=== PATIENT | male | born 1995 | race Caucasian/White ===

== ENCOUNTER 2018-08-01 14:20 | Emergency (ER) | payer OTHER ==
[~2018-08-01] VITALS: Ht 180.3 cm; Wt 90.7 kg
[~2018-08-01 14:20] MED LIST: ACETAMINOPHEN-1 EAC1 PO; AMLODIPINE BESY10 MG PO; ANTACID650 MG PO; ATIVAN1 MG PO; BACTRIM DS TAB1 EACH PO; BUSPAR30 MG PO; CELLCEPT500 MG PO; CIPRO500 MG PO; EPOGEN; IRON; MELATONIN3 MG PO; NORCO 5-325 TA1 EAC1 PO; NORCO 5-325 TA1 EACH PO; OMEPRAZOLE; ONDANSETRON HCL4 M2 PO; PREDNISOLONE 5 M5 M1 PO; PRILOSEC2.5 MG PO; ROBAXIN 750 MG750 M1 PO; TACROLIMUS0.5 MG PO; VALCYTE450 MG PO; VITAMIN D; VITAMIN D1000 UNI1 PO; ZYPREXA5 MG PO; [UNRECOGNIZED DRUG - OTHER]; [UNRECOGNIZED DRUG - OTHER]
[2018-08-01 15:06] VITALS: BP 144/84
== END 2018-08-01 15:07 | disposition home or self-care (01) ==
LOC: M.ERS 14:20
DX: S51.812A Laceration without foreign body of left forearm, initial encounter (principal); F17.210 Nicotine dependence, cigarettes, uncomplicated; Z91.041 Radiographic dye allergy status; Z88.8 Allergy status to other drugs, medicaments and biological substances; W26.8XXA Contact with other sharp object(s), not elsewhere classified, initial encounter; Y93.89 Activity, other specified; Y92.89 Other specified places as the place of occurrence of the external cause; Y99.8 Other external cause status

== ENCOUNTER 2020-07-05 09:10 | Emergency (ER) | payer MEDICAID ==
[~2020-07-05] VITALS: Ht 182.9 cm; Wt 79.4 kg
[2020-07-05] MEDS ORDERED: HYDROCODON-ACE1 EAC7 PO (10:31)
[2020-07-05 11:05] VITALS: BP 120/80
== END 2020-07-05 11:05 | disposition home or self-care (01) ==
LOC: M.ERS 09:10
DX: S63.502A Unspecified sprain of left wrist, initial encounter (principal); M79.645 Pain in left finger(s); Z94.0 Kidney transplant status; Z79.899 Other long term (current) drug therapy; Z79.2 Long term (current) use of antibiotics; Z91.041 Radiographic dye allergy status; Z88.8 Allergy status to other drugs, medicaments and biological substances; W23.0XXA Caught, crushed, jammed, or pinched between moving objects, initial encounter; Y93.89 Activity, other specified; Y92.89 Other specified places as the place of occurrence of the external cause; Y99.8 Other external cause status

== ENCOUNTER 2021-02-17 18:04 | Emergency (ER) | payer MEDICAID ==
[~2021-02-17] VITALS: Ht 182.9 cm; Wt 77.1 kg
[~2021-02-17 18:04] MED LIST changes: +HYDROCODON-ACE1 EAC7 PO
[2021-02-17] MEDS ORDERED: RAYOS5 MG PO (18:16)
[2021-02-17] MEDS ORDERED: PROGRAF0.2 MG PO (18:16)
[2021-02-17] MEDS ORDERED: NORVASC 2.5 MG2.5 M1 PO (18:16)
[2021-02-17] MEDS ORDERED: CELLCEPT250 MG PO (18:18)
[2021-02-17] MEDS ORDERED: POLYMYXIN B/TMP10 ML INTRAOCULR (19:28)
[2021-02-17 19:46] VITALS: BP 144/78
== END 2021-02-17 19:46 | disposition home or self-care (01) ==
LOC: M.ERS 18:04
DX: H53.8 Other visual disturbances (principal); Z79.899 Other long term (current) drug therapy; Z88.6 Allergy status to analgesic agent; Z91.041 Radiographic dye allergy status

== ENCOUNTER 2021-03-26 06:59 | Emergency (ER) | payer MEDICAID ==
[~2021-03-26] VITALS: Ht 182.9 cm; Wt 79.4 kg
[~2021-03-26 06:59] MED LIST changes: +CELLCEPT250 MG PO; +NORVASC 2.5 MG2.5 M1 PO; +POLYMYXIN B/TMP10 ML INTRAOCULR; +PROGRAF0.2 MG PO; +RAYOS5 MG PO
[2021-03-26] MEDS ORDERED: AMOXICILLIN 50500 MG PO (07:51)
[2021-03-26 07:56] LABS: INFLUENZA A ANTIGEN Negative (Negative); INFLUENZA B ANTIGEN Negative (Negative)
[2021-03-26 08:05] VITALS: BP 137/84
== END 2021-03-26 08:10 | disposition home or self-care (01) ==
LOC: M.ERS 06:59
PROVIDERS: Family Medicine
DX: J01.10 Acute frontal sinusitis, unspecified (principal); Z20.822 Contact with and (suspected) exposure to COVID-19; J01.00 Acute maxillary sinusitis, unspecified; Z94.0 Kidney transplant status; Z90.89 Acquired absence of other organs; Z79.899 Other long term (current) drug therapy; Z91.041 Radiographic dye allergy status; Z88.8 Allergy status to other drugs, medicaments and biological substances

== ENCOUNTER 2021-04-08 17:19 | Emergency (ER) | payer MEDICAID ==
[~2021-04-08] VITALS: Ht 182.9 cm; Wt 79.4 kg
[~2021-04-08 17:19] MED LIST changes: +AMOXICILLIN 50500 MG PO
[2021-04-08] MEDS ORDERED: PRILOSEC10 MG PO (17:32)
[2021-04-08 19:53] VITALS: BP 125/78
== END 2021-04-08 19:53 | disposition home or self-care (01) ==
LOC: M.ERS 17:19
DX: S39.012A Strain of muscle, fascia and tendon of lower back, initial encounter (principal); I31.3 Pericardial effusion (noninflammatory); R10.32 Left lower quadrant pain; F17.200 Nicotine dependence, unspecified, uncomplicated; Z94.0 Kidney transplant status; Z90.89 Acquired absence of other organs; Z79.891 Long term (current) use of opiate analgesic; Z79.899 Other long term (current) drug therapy; Z88.8 Allergy status to other drugs, medicaments and biological substances; Z88.6 Allergy status to analgesic agent; Z91.041 Radiographic dye allergy status; X50.0XXA Overexertion from strenuous movement or load, initial encounter; Y93.89 Activity, other specified; Y92.89 Other specified places as the place of occurrence of the external cause; Y99.8 Other external cause status

== ENCOUNTER 2021-05-10 03:04 | Observation (INO) | payer MEDICAID ==
[~2021-05-10] VITALS: Ht 180.3 cm; Wt 77.2 kg
[~2021-05-10 03:04] MED LIST changes: +PRILOSEC10 MG PO; -VITAMIN D1000 UNI1 PO; +VITAMIN D350 MCG PO
[2021-05-10 03:16] VITALS: BP 120/85
[2021-05-10 03:48] LABS: ABSOLUTE BASOPHILS 0.1 thou/uL (0.0-0.2); ABSOLUTE EOSINOPHILS 0.1 thou/uL (0.0-0.7); ABSOLUTE LYMPHOCYTES 2.7 thou/uL (0.8-5.3); ABSOLUTE MONOCYTES 0.5 thou/uL (0.0-1.2); ABSOLUTE NEUTROPHILS 3.8 thou/uL (1.6-8.1); BASOPHILS 1.5 %; HEMATOCRIT 43.8 % (42.0-52.0); HEMOGLOBIN 14.5 gm/dL (14.0-18.0); LYMPHOCYTES 37.2 %; MCV 87.7 fL (80.0-100.0); MONOCYTES 6.9 %; MPV 9.6 fl. (7.2-11.1); NUCLEATED RBCS 0 /100WBC; PLATELET COUNT* 116 thou/uL (150-400); POLYS 53.4 %; RDW-CV 14.3 % (10.5-14.5); WBC 7.2 thou/uL (4.0-11.0)
[2021-05-10 04:02] LABS: CALCIUM 8.5 mg/dL (8.5-10.1); CREATININE 1.2 mg/dL (0.6-1.3); POTASSIUM 3.7 mmol/L (3.5-5.1)
[2021-05-10 04:13] LABS: ALBUMIN 3.9 g/dL (3.4-5.0); TOTAL BILIRUBIN 0.6 mg/dL (<0.1-1.0); TOTAL PROTEIN 6.6 g/dL (6.4-8.2)
[2021-05-10 05:36] LABS: INFLUENZA A ANTIGEN Negative (Negative); INFLUENZA B ANTIGEN Negative (Negative)
[2021-05-10 08:08] LABS: URINE BILIRUBIN NEGATIVE (Negative); URINE BLOOD NEGATIVE (Negative); URINE CLARITY CLEAR; URINE COLOR YELLOW; URINE GLUCOSE-RANDOM NEGATIVE (Negative); URINE KETONES NEGATIVE (Negative); URINE LEUKOCYTES-REFLEX NEGATIVE (Negative); URINE NITRITE-REFLEX NEGATIVE (Negative); URINE PROTEIN NEGATIVE (Negative); URINE UROBILINOGEN 0.2 E.U./dl (0.2-1.0)
[2021-05-10] MEDS ORDERED: LORAZEPAM 0.50.5 MG PO (08:45)
[2021-05-10 09:41] VITALS: BP 115/69
--- NOTE | 2021-05-10 09:44 | EKG ---
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: ROBI : 1995 Requested By: No Becker Order Number: [id number] MD: Fady Best Measurements Intervals [place] Rate: 78 P: 37 DE: 206 QRS: 91 QRSD: 104 T: 32 QT: 376 QTc: 429 Interpretive Statements Sinus rhythm right axis Borderline prolonged DE interval Probable left atrial enlargement Borderline right axis deviation Baseline wander in lead(s) V2 No previous ECG available for comparison Electronically Signed On 05-10-2021 9:44:23 [employer] by Fady Best [email or web address] <ELECTRONICALLY SIGNED> By: Fady Best MD, FAC 05/10/21 0944 0329 0329 Fady Best MD, [facility] /EPI
--- NOTE | 2021-05-10 12:54 | CON ---
[address] [address] CONSULTATION Name: MEGKINA DAYANARA Room: [address] [place]#: [id number] Admission: 05/10/21 Attend Phys: Augie Granados MD Discharge: Date of : [birth year] Report #: [id number] THIS REPORT FOR: cc: [facility] - Clinic physician unknown [facility] - Clinic physician unknown Fady Best MD [facility] ~ DATE OF CONSULTATION: 05/10/2021 HISTORY OF PRESENT ILLNESS: The patient is a 26-year-old single white male who I was asked to see in the Emergency Room today after he complained to being short of breath. The patient has an extensive and complicated past medical history. He was born with kidney disease. He underwent his first kidney transplant when he was 5 years old at [facility] with a living related donor kidney from his mom. This lasted until he was 14 years old. He was on hemodialysis for about 4 years, although when he was 18 years old, he underwent a second cadaveric kidney transplant at [facility]. This has done well for the past 10 years. He stays very active. He has a chronic pericardial effusion and is followed by round up ring hand at [facility]. He has never had pericardiocentesis. Recently, he has been running a fever and coughing more. Last night, became more short of breath, so family members brought him to the Emergency Room. He was admitted for further evaluation and treatment. He denies lower extremity edema. He has some chest heaviness. He does have occasional episodes with his heart rate was increasing, but he has had no syncope. PAST MEDICAL HISTORY: Otherwise, he has had tonsillectomy. No history of diabetes, hyperlipidemia. He does have a history of hypertension. CURRENT MEDICATIONS: Include CellCept, prednisone, sodium bicarbonate, tamsulosin, amlodipine. ALLERGIES: HE HAS A PREVIOUS INTOLERANCE TO RISPERDAL. FAMILY HISTORY: His father has pericardial effusion. SOCIAL HISTORY: He is single, lives here in [place] with his parents. 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 Smokes half pack of cigarettes a day. No alcohol abuse. No illicit drug use. REVIEW OF SYSTEMS: There has been no history of a stroke. He does have asthma, uses an inhaler. He has oxygen at home. No history of liver disease or cancer. He saw a psychiatrist in the past for posttraumatic stress disorder. No chronic skin condition. PHYSICAL EXAMINATION: [place] [address] CONSULTATION Name: KINA WEAVER DAYANARA [address] [id number] Admission: 05/10/21 Attend Phys: Augie Granados MD Discharge: Date of : 89 Report #: [id number] GENERAL: Revealed a young male, lying in bed, appeared in no distress. VITAL SIGNS: His blood pressure of 130/70, pulse 70, he was afebrile. HEENT: He was anicteric. Conjunctivae are pink. Mucous membranes moist. NECK: Neck veins do not appear distended. No carotid bruits. CHEST: Clear to auscultation. HEART: Regular rate and rhythm without rubs or murmurs. ABDOMEN: Soft. EXTREMITIES: Had no pitting pedal edema. Posterior tibial pulse 2+ bilaterally. SKIN: Cool and dry. NEUROLOGIC: Nonfocal. IMAGING: His ECG on admission showed a sinus rhythm. There were no significant ST or T-wave change noted. His workup in the Emergency Room last night, he had a portable chest x-ray that showed normal heart size, no infiltrates. He actually had a CT scan of the chest without contrast last night that showed a large pericardial effusion, atrophy of the kidneys, otherwise unremarkable. LABORATORY DATA: His lab work, creatinine 1.2. High sensitivity troponin was 7. BNP 101. His hemoglobin 14.5. His COVID antigen stat test was negative. Urinalysis negative for protein. IMPRESSION AND RECOMMENDATIONS: 1. Large pericardial effusion. No evidence of tamponade. We would recommend pericardiocentesis at this time. 2. Previous kidney transplant. The patient on immunosuppressive therapy. 3. Tobacco abuse. 4. Bronchitis. 5. Hypertension. The patient is on amlodipine. I would hold at this time. <ELECTRONICALLY SIGNED> By: Fady Best MD, [facility] 05/10/21 1254 0745 [id number] Best MD, [facility] /nt
[2021-05-10 13:41] VITALS: BP 125/77
--- NOTE | 2021-05-10 15:32 | NUR ---
PER DR. ST, HE WOULD LIKE TO KEEP THE PATIENT OVER NIGHT FOR OBSERVATION. PT WILL NOT BE DISCHARGED TODAY.
--- NOTE | 2021-05-10 16:48 | 2DMMODE ---
[place] [address] 2 D/M-MODE ECHOCARDIOGRAM Name: MEGKINA DAYANARA Room: [address] M.RBonifacio#: [id number] Admission: 05/10/21 Attend Phys: Augie Granados, Discharge: Date of : 89 Date of Service: 05/10/21 1648 Report #: [id number] THIS REPORT FOR: cc: [facility] - Clinic physician unknown [facility] - Clinic physician unknown Rad Bonner MD [facility] ~ APPROVED REPORT Study performed: 05/10/2021 14:28:26 EXAM: Comprehensive 2D, Doppler, and color-flow Echocardiogram Patient Location: In-Patient Room #: er Status: routine BSA: 1.99 HR: 80 bpm BP: 123/81 mmHg Rhythm: NSR Other Information Study Quality: Good Indications Pericardial Effusion 2D Dimensions IVSd: 9.00 (7-11mm) LVOT Diam: 20.66 (18-24mm) LVDd: 49.04 mm PWd: 8.49 (7-11mm) Ascending Ao: 25.52 (22-36mm) LVDs: 32.26 (25-40mm) Aortic Root: 29.40 mm Volumes Left Atrial Volume (Systole) LA ESV Index: 24.70 mL/m2 Aortic Valve AoV Peak Tone.: 1.47 m/s AO Peak Gr.: 8.60 mmHg LVOT Max P.26 mmHg AO Mean Gr.: 4.93 mmHg LVOT Mean P.54 mmHg LVOT Max V: 1.52 m/s AO V2 VTI: 27.51 cm LVOT Mean V: 0.97 m/s CORNINE (VTI): 3.59 cm2 LVOT V1 VTI: 29.48 [place] [address] 2 D/M-MODE ECHOCARDIOGRAM Name: KINA WEAVER Room: [address] MDelmar#: [id number] Admission: 05/10/21 Attend Phys: Augie Granados, Discharge: Date of : 89 Date of Service: 05/10/21 1648 Report #: [id number] Mitral Valve E/A Ratio: 1.10 MV Decel. Time: 253.07 ms MV E Max Tone.: 1.25 m/s MV PHT: 73.39 ms MVA (PHT): 3.00 cm2 TDI E/Lateral E': 13.89 E/Medial E': 15.63 Medial E' Tone.: 0.08 m/s Lateral E' Tone.: 0.09 m/s Pulmonary Valve PV Peak Tone.: 1.07 m/s PV Peak Gr.: 4.55 mmHg Tricuspid Valve RAP Estimate: 5.00 mmHg TR Peak Gr.: 22.33 mmHg RVSP: 27.00 mmHg PA Pressure: 27.00 mmHg Left Ventricle The left ventricle is normal size. There is normal LV segmental wall motion. There is normal left ventricular wall thickness. Left ventricular systolic function is normal. LVEF is 55-60%. The left ventricular diastolic function is normal. Right Ventricle The right ventricle is normal size. The right ventricular systolic function is normal. Atria The left atrium size is normal. The right atrium size is normal. Aortic Valve The aortic valve is normal in structure. No aortic regurgitation is present. There is no aortic valvular stenosis. Mitral Valve The mitral valve is normal in structure. Trace mitral regurgitation. No evidence of mitral valve stenosis. Tricuspid Valve The tricuspid valve is normal in structure. Trace tricuspid regurgitation. [place] [address] 2 D/M-MODE ECHOCARDIOGRAM Name: WEAVERKINA [address] [id number] Admission: 05/10/21 Attend Phys: Augie Granados, Discharge: Date of : 89 Date of Service: 05/10/21 1648 Report #: [id number] Pulmonic Valve The pulmonary valve is normal in structure. Mild pulmonic regurgitation. Great Vessels The aortic root is normal in size. IVC is normal in size and collapses >50% with inspiration. Pericardium Moderate to large circumferential pericardial effusion with no signs of tamponade. <Conclusion> The left ventricle is normal size. There is normal left ventricular wall thickness. Left ventricular systolic function is normal. LVEF is 55-60%. The left ventricular diastolic function is normal. Trace mitral regurgitation. Trace tricuspid regurgitation. No pulmonary hypertension. Mild pulmonic regurgitation. IVC is normal in size and collapses >50% with inspiration. Moderate to large circumferential pericardial effusion with no signs of tamponade. <ELECTRONICALLY SIGNED> By: Rad Bonner MD, FACC 05/10/211647 47 47 Rad Bonner MD, FACC /INF
--- NOTE | 2021-05-10 17:07 | NUR ---
DR. ST SPOKE TO DR. MOTLEY AND STATES THAT THE PATIENT CAN BE DISCHARGED TO HOME AT THIS TIME.
--- NOTE | 2021-05-10 17:29 | NUR ---
PER DR. GUAJARDO, WHO IS NOW THE PATIENT'S ADMITTING PHYSICIAN, THE PATIENT WILL BE ADMITTED TO THE HOSPITAL.
[2021-05-10 17:41] VITALS: BP 123/83
[2021-05-10 18:49] VITALS: BP 123/83
[2021-05-10 20:00] VITALS: BP 137/80
[2021-05-11] VITALS: BP 133/81
[2021-05-11 04:00] VITALS: BP 140/78
--- NOTE | 2021-05-11 05:36 | NUR ---
ASSUMED PT CARE AT APPROX 1900. PT IS AWAKE AND ORIENTED X4. PT IS NOT IN DISTRESS, NO DESATURATIONS NOTED ON ROOM AIR. PT DENIES CHEST PAIN/DISCOMFORT. PT IS TRACING SR ON THE SENIOR PROFESSIONAL SERVICES CONSULTANT. NO ACUTE CHANGES THIS SHIFT. CALL LIGHT WITHIN REACH. HOURLY ROUNDING DONE FOR PT SAFETY.
[2021-05-11 05:37] LABS: HEMATOCRIT 44.8 % (42.0-52.0); HEMOGLOBIN 14.5 gm/dL (14.0-18.0); MCH 28.7 pg (26.0-34.0); MCHC 32.4 g/dL (28.0-37.0); MCV 88.7 fL (80.0-100.0); MPV 10.2 fl. (7.2-11.1); NUCLEATED RBCS 0 /100WBC; PLATELET COUNT* 125 thou/uL (150-400); RBC 5.04 mil/uL (4.50-6.00); RDW-CV 14.2 % (10.5-14.5); WBC 8.5 thou/uL (4.0-11.0)
[2021-05-11 05:44] LABS: CALCIUM 9.2 mg/dL (8.5-10.1); CREATININE 1.4 mg/dL (0.6-1.3); POTASSIUM 4.8 mmol/L (3.5-5.1)
[2021-05-11 08:28] VITALS: BP 133/77
[2021-05-11 09:25] LABS: ABSOLUTE NEUTROPHILS 7.3 thou/uL (1.6-8.1)
[2021-05-11 09:26] LABS: ABSOLUTE LYMPHOCYTES 0.9 thou/uL (0.8-5.3); ABSOLUTE MONOCYTES 0.3 thou/uL (0.0-1.2); PLATELET ESTIMATE ADEQUATE
--- NOTE | 2021-05-11 10:59 | NUR ---
ASSUMED CARE OF PT THIS AM AROUND 0715- SECURITIES COUNSELOR IN PLACE ORDERED, TRACING SR- UPON ASSESSMENT PT NOTED TO BE RESTING IN BED- PT A&O X4- CONT OF B/B- UP AD-AILEEN- VSS, O2 SAT 98% ON RA- WHEEZES NOTED TO RLL- ABD SOFT/FLAT/NON-TENDER, BS X4 QUADS- BM REPORTED THIS AM- IV NOTED TO LEFT HAND INTACT AND SL- RIGHT UE FISTULA NOTED- RENAL DIET NOTED- PT DENIES ANY C/O PAIN- CALL LIGHT AND PERSONAL BELONGINGS WITH IN REACH- PT MAKES NEEDS KNOWN- ALL NEEDS MET AT THIS TIME
[2021-05-11 11:41] VITALS: BP 132/76
[2021-05-11] MEDS ORDERED: DOXYCYCLINE 10100 MG PO (12:58)
[2021-05-11 13:13] VITALS: BP 132/76
[2021-05-11 13:33] VITALS: BP 132/76
--- NOTE | 2021-05-11 14:26 | NUR ---
CM ASSESSMENT: PT A&O, INDEPENDENT WITH ADL'S, AND ACTIVE. PT USES HOME NEBULIZER. PT INFORMS THAT HE ALSO OWNS HOME OXYGEN CONCENTRATOR, BUT DOES NOT USE IT. NO OTHER DME. NO CM D/C PLANNING NEEDS ANTICIPATED. CM WILL REMAIN AVAILABLE TO ASSIST AND FOLLOW NEEDED.
== END 2021-05-11 13:30 | disposition home or self-care (01) ==
LOC: M.ERS 03:04 → M.TBA-ER 05:41 → M.2W 19:00
PROVIDERS: Personal Emergency Response Attendant; ADMIT Internal Medicine; ATTEND Internal Medicine
DX: J20.9 Acute bronchitis, unspecified (principal); Z20.822 Contact with and (suspected) exposure to COVID-19; M54.50 Low back pain, unspecified; G89.29 Other chronic pain; I31.3 Pericardial effusion (noninflammatory); F17.210 Nicotine dependence, cigarettes, uncomplicated; Z79.899 Other long term (current) drug therapy; Z94.0 Kidney transplant status